=== PATIENT | female | born 2000 | race Caucasian/White ===

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

== ENCOUNTER → 2021-01-12 | Outpatient (REF) | payer OTHER | LOC: M PLALAB 14:18 | PROVIDERS: ATTEND Obstetrics & Gynecology | DX: Z3A.01 Less than 8 weeks gestation of pregnancy (principal) ==

== ENCOUNTER → 2021-02-09 | Outpatient (REF) | payer OTHER ==
[2021-02-09 14:21] LABS: HEMATOCRIT 39.6 % (36.0-47.0); MEAN CORPUSCULAR HEMOGLOBIN 31.4 pg (27.0-33.0); MEAN CORPUSCULAR HGB CONC 32.8 g/dl (32.0-36.5); MEAN CORPUSCULAR VOLUME 95.7 fl (80.0-96.0); PLATELET COUNT, AUTOMATED 245 10^3/uL (150-450); RED BLOOD COUNT 4.14 10^6/uL (4.00-5.40); WHITE BLOOD COUNT 9.9 10^3/uL (4.0-10.0)
[2021-02-09 15:42] LABS: HEPATITIS C VIRUS ABY INDEX < 0.0 INDEX (<0.8); HIV 1&2 SCREEN CENTAUR NEGATIVE (NEGATIVE)
== END ==
LOC: M PLALAB 11:44
PROVIDERS: ATTEND Obstetrics & Gynecology
DX: Z34.01 Encounter for supervision of normal first pregnancy, first trimester (principal)

== ENCOUNTER → 2021-03-09 | Outpatient (REF) | payer OTHER | LOC: M PLALAB 10:38 | PROVIDERS: ATTEND Obstetrics & Gynecology | DX: Z36.89 Encounter for other specified antenatal screening (principal); Z3A.15 15 weeks gestation of pregnancy ==

== ENCOUNTER → 2021-03-30 | Outpatient (CLI) | payer OTHER ==
--- NOTE | 2021-03-30 14:31 | REP ---
INDICATION: ANATOMY COMPARISON: 03/09/2021 TECHNIQUE: Transabdominal obstetrical ultrasound with color Doppler evaluation. FINDINGS: Examination demonstrates a single live intrauterine in cephalic presentation. motion is identified by technologist. Placenta is noted anterior and grade 1 without evidence for placenta previa or abruption. Amniotic fluid volume is normal. Cervix measures 5.3 cm in length and appears closed.. Gestational age by current measurements 19 weeks 5 days with LEVI 08/19/2021. FHR equals 149 beats per minute. Estimated weight 286 grams (22ndpercentile based on age by current measurements at 19 weeks 5 days). Anatomical assessment demonstrates normal structures including cranium, choroid plexus, cavum, cerebellum/posterior fossa, facial features, lungs, four-chamber heart/ventricular outflow tracts, diaphragm, stomach, cord insertion/three-vessel cord, kidneys/bladder, spine, and extremities. IMPRESSION: Single live intrauterine . Anatomical assessment is complete and normal. <Electronically signed by Tomas Buck > 03/30/21 [id number]
== END ==
LOC: M WHC 13:21
PROVIDERS: ATTEND Obstetrics & Gynecology
DX: Z36.89 Encounter for other specified antenatal screening (principal); Z3A.19 19 weeks gestation of pregnancy

== ENCOUNTER 2021-05-09 10:51 | Emergency (ER) | payer OTHER ==
[~2021-05-09] VITALS: Ht 165.1 cm; Wt 61.2 kg
[2021-05-09] MEDS ORDERED: NS 1,000 ML IV ONE (11:50)
[2021-05-09 12:24] LABS: BASO % 0.3 % (0.0-1.0); EOS # 0.1 10^3/uL (0.0-0.5); EOS % 0.6 % (0.0-3.0); HEMATOCRIT 35.1 % (36.0-47.0); HEMOGLOBIN 11.5 g/dl (12.0-15.5); LYMPH # 1.2 10^3/uL (1.5-5.0); LYMPH % 11.5 % (24.0-44.0); MEAN CORPUSCULAR HEMOGLOBIN 31.9 pg (27.0-33.0); MEAN CORPUSCULAR HGB CONC 32.8 g/dl (32.0-36.5); MEAN CORPUSCULAR VOLUME 97.5 fl (80.0-96.0); MONO # 0.7 10^3/uL (0.0-0.8); MONO % 6.3 % (2.0-8.0); NEUTROPHILS # 8.3 10^3/uL (1.5-8.5); NEUTROPHILS % 80.6 % (36.0-66.0); PLATELET COUNT, AUTOMATED 196 10^3/uL (150-450); WHITE BLOOD COUNT 10.3 10^3/uL (4.0-10.0)
[2021-05-09 13:22] LABS: CK-MB VALUE MASS 1.2 NG/ML (<3.6); CPK CREATINE PHOSPHOKINASE 11 U/L (26-192); HCG, SERUM QUANTITATIVE 22453 MIU/ML; MB/CK RELATIVE INDEX 10.91 (< OR =4); TROPONIN I < 0.02 NG/ML (< 0.10)
[2021-05-09 17:53] LABS: CK-MB VALUE MASS < 1.0 NG/ML (<3.6); CPK CREATINE PHOSPHOKINASE 10 U/L (26-192); TROPONIN I < 0.02 NG/ML (< 0.10)
[2021-05-09 18:16] VITALS: BP 118/69
[2021-08-22] MEDS ORDERED: BENA25CA4 PO (12:45)
[2021-08-22] MEDS ORDERED: ACET500P3 PO (12:45)
[2021-08-23] MEDS ORDERED: OXYC1TAB23 PO (09:07)
[2021-08-23] MEDS ORDERED: IBUP80TA PO (09:07)
== END 2021-05-09 19:10 | disposition home or self-care (01) ==
LOC: M ED 10:51
DX: O99.282 Endocrine, nutritional and metabolic diseases complicating pregnancy, second trimester (principal); O26.52 Maternal hypotension syndrome, second trimester

== ENCOUNTER → 2021-06-02 | Outpatient (CLI) | payer OTHER ==
[2021-06-02 14:05] LABS: HEMOGLOBIN 10.5 g/dl (12.0-15.5); MEAN CORPUSCULAR HEMOGLOBIN 31.9 pg (27.0-33.0); MEAN CORPUSCULAR HGB CONC 31.8 g/dl (32.0-36.5); MEAN CORPUSCULAR VOLUME 100.3 fl (80.0-96.0); PLATELET COUNT, AUTOMATED 195 10^3/uL (150-450); RED BLOOD COUNT 3.29 10^6/uL (4.00-5.40); WHITE BLOOD COUNT 9.1 10^3/uL (4.0-10.0)
== END ==
LOC: M PLALAB 08:35
PROVIDERS: ATTEND Advanced Practice Midwife
DX: Z34.02 Encounter for supervision of normal first pregnancy, second trimester (principal); Z3A.00 Weeks of gestation of pregnancy not specified

== ENCOUNTER → 2021-07-09 | Outpatient (CLI) | payer OTHER ==
[2021-07-09 15:29] LABS: HEMATOCRIT 33.2 % (36.0-47.0); HEMOGLOBIN 10.6 g/dl (12.0-15.5); MEAN CORPUSCULAR HEMOGLOBIN 30.3 pg (27.0-33.0); MEAN CORPUSCULAR HGB CONC 31.9 g/dl (32.0-36.5); MEAN CORPUSCULAR VOLUME 94.9 fl (80.0-96.0); PLATELET COUNT, AUTOMATED 186 10^3/uL (150-450); WHITE BLOOD COUNT 9.1 10^3/uL (4.0-10.0)
[2021-07-09 15:43] LABS: CREATININE,RANDOM URINE 85.5 MG/DL; TOTAL PROTEIN,RANDOM URINE 22.1 MG/DL (0.0-12.0)
[2021-07-09 16:01] LABS: ALT/SGPT 20 U/L (12-78); BILIRUBIN,TOTAL 0.6 MG/DL (0.2-1.0); LDH LACTATE DEHYDROGENASE 148 U/L (84-246); URIC ACID 3.6 MG/DL (2.6-6.0)
== END ==
LOC: M PLALAB 12:17
PROVIDERS: ATTEND Obstetrics & Gynecology
DX: O16.9 Unspecified maternal hypertension, unspecified trimester (principal)

== ENCOUNTER → 2021-08-12 | Outpatient (REF) | payer OTHER | LOC: M SFHCWAGY 16:56 | PROVIDERS: ATTEND Advanced Practice Midwife | DX: Z36.89 Encounter for other specified antenatal screening (principal); Z3A.37 37 weeks gestation of pregnancy ==

== ENCOUNTER → 2021-08-13 | Outpatient (CLI) | payer OTHER ==
--- NOTE | 2021-08-13 12:34 | REP ---
INDICATION: SIZE DATE DISCREPANCY. COMPARISON: Comparison study May 09, 2021. TECHNIQUE: Transabdominal obstetric sonography. FINDINGS: Scanning through the gravid uterus demonstrates a viable single intrauterine gestation in cephalic lie. motion is observed and heart rate is recorded at 149 beats per minute. A anterior placenta is seen, grade 2, without evidence of placenta previa. Closed cervical length is measured at 3.0 cm transabdominally. No extrauterine abnormality is observed. Amniotic fluid is subjectively polyhydramnios. FABBY is elevated at 25.1 cm (7.2-22.5 cm).. Biometry chart: BPD 9.5 cm, 38 weeks 5 days Head circumference 33.3 cm, 38 weeks 0 days Abdominal circumference 37.9 cm, 41 weeks 6 days Femur length 7.5 cm, 38 weeks 3 days Humeral length 6.6 cm, 38 weeks 3 days HC AC ratio normal 0.88 Cephalic index normal 0.82 Estimated weight 4046 g, 8 lb 14 oz, greater than 97th percentile for 39 weeks 1 day IMPRESSION: Viable single intrauterine gestation at 39 weeks 1 days by today's composite sonographic criteria. LEVI by today's sonography August 19, 2021. No complication identified. Expected gestational age estimate based on prior sonography 39 weeks 1 day, LEVI by prior sonography August 19, 2021. Appropriate interval growth. Polyhydramnios. <Electronically signed by Michelet Melendrez > 08/13/21 [id number]
== END ==
LOC: M WHC 11:51
PROVIDERS: ATTEND Advanced Practice Midwife
DX: O26.843 Uterine size-date discrepancy, third trimester (principal); Z3A.39 39 weeks gestation of pregnancy; O40.3XX0 Polyhydramnios, third trimester, not applicable or unspecified

== ENCOUNTER 2021-08-18 09:30 | Outpatient (CLI) | payer OTHER ==
[2021-08-18] VITALS (12 sets, daily range): BP systolic 115–143; BP diastolic 60–93
[~2021-08-18] VITALS: Ht 157.5 cm; Wt 70.3 kg
[2021-08-18] MEDS ORDERED: PRENTAB9 PO (10:39)
[2021-08-18] MEDS ORDERED: TUMS500C PO (10:39)
[2021-08-18] MEDS ORDERED: HOME MED LIST COMPLETE! XX SCH (10:40)
[2021-08-18 11:09] LABS: HEMATOCRIT 32.4 % (36.0-47.0); HEMOGLOBIN 10.3 g/dl (12.0-15.5); MEAN CORPUSCULAR HEMOGLOBIN 28.5 pg (27.0-33.0); MEAN CORPUSCULAR HGB CONC 31.8 g/dl (32.0-36.5); MEAN CORPUSCULAR VOLUME 89.8 fl (80.0-96.0); PLATELET COUNT, AUTOMATED 200 10^3/uL (150-450); RED BLOOD COUNT 3.61 10^6/uL (4.00-5.40); WHITE BLOOD COUNT 9.8 10^3/uL (4.0-10.0)
[2021-08-18 11:12] LABS: APPEARANCE, URINE HAZY (CLEAR); BACTERIA, URINE AUTO 2+ (NEGATIVE); BILIRUBIN, URINE AUTO NEGATIVE (NEGATIVE); BLOOD, URINE BLOOD NEGATIVE (NEGATIVE); COLOR, URINE YELLOW (YELLOW); GLUCOSE, URINE (UA) AUTO NEGATIVE (NEGATIVE); KETONE, URINE AUTO NEGATIVE (NEGATIVE); LEUKOCYTE ESTERASE, URINE AUTO NEGATIVE (NEGATIVE); NITRITE, URINE AUTO NEGATIVE (NEGATIVE); PROTEIN, URINE AUTO NEGATIVE (NEGATIVE); RBC, URINE AUTO 0 /HPF (0-3); SQUAMOUS EPITHELIAL CELL UR AU 4 /HPF (0-6); UROBILINOGEN, URINE AUTO 0.2 mg/dL (0.0-2.0); WBC, URINE AUTO 8 /HPF (0-3)
[2021-08-18] MEDS ORDERED: MORPHINE 2 MG/ML 1ML VIAL (J2270) IV PRN (11:35)
[2021-08-18 11:37] LABS: ALBUMIN 2.6 GM/DL (3.2-5.2); ALT/SGPT 17 U/L (12-78); BILIRUBIN,TOTAL 0.6 MG/DL (0.2-1.0); BLOOD UREA NITROGEN 9 MG/DL (7-18); CALCIUM LEVEL 8.2 MG/DL (8.5-10.1); CARBON DIOXIDE LEVEL 22 MEQ/L (21-32); CHLORIDE LEVEL 108 MEQ/L (98-107); CREATININE FOR GFR 0.52 MG/DL (0.55-1.30); GLUCOSE, FASTING 73 MG/DL (70-100); POTASSIUM SERUM 4.2 MEQ/L (3.5-5.1); SODIUM LEVEL 138 MEQ/L (136-145); TOTAL PROTEIN 5.8 GM/DL (6.4-8.2)
[2021-08-18] MEDS ORDERED: cefTRIAXone SOD 1 GM in D5W MINI-BAG PLUS 50 ML IV SCH (12:00)
[2021-08-18] MEDS ORDERED: NS 1,000 ML IV SCH (12:30)
--- NOTE | 2021-08-18 15:45 | REP ---
INDICATION: eval for kidney stones COMPARISON: None TECHNIQUE: Real time lemos scale ultrasound examination using curved array transducer. FINDINGS: Right kidney measures 12.7 x 4.3 x 6.6 cm and includes grade 4 hydroureteronephrosis without obvious nephrolithiasis, cystic or renal mass lesion. Left kidney measures 13.1 x 4.5 x 6.4 cm and demonstrates grade 4 hydroureteronephrosis without obvious nephrolithiasis, cystic or renal mass lesion. Bladder is collapsed. Advanced at 38 weeks (FHR: 144 bpm). IMPRESSION: Marked symmetric bilateral hydroureteronephrosis likely induced. No evidence for nephrolithiasis. <Electronically signed by Tomas Buck > 08/18/21 [id number]
[2021-08-18] MEDS ORDERED: TAMSULOSIN 0.4 MG CAP PO ONE (18:00)
[2021-08-18] MEDS ORDERED: ACETAMINOPHEN 500 MG TAB PO ONE (19:15)
[2021-08-18] MEDS ORDERED: FLOM0.4C39 PO (21:22)
[2021-08-18] MEDS ORDERED: CEPH25SS PO (21:23)
--- NOTE | 2021-08-18 21:39 | IPNPDOC ---
Text Note Date of Service The patient was seen on 08/18/21. NOTE S: Pt is a 21yo G 1 P 0 at 38w2 EGA who presents with severe, colicky back pain. Denies ctx, lof, vb. +FM. History of kidney stones and feels like this pain is similar. First episode of pain on Tuesday, sudden onset associated with vomiting. Self resolved. Denies fevers, chills. Denies dysuria/urgency/frequency. Continues to have left flank pain on and off since Tuesday. O: BP 131/83 HR 90 T 98.1 FHT 125 mod +accel no decel TOCO irregular SVE /-2 UA: neg blood, neg nit, +WBC and +bacteria Renal US: negative A/P: Pt is a 21yo at 38w2d EGA who presents with left flank pain concerning for kidney stones 1. Flank pain - Renal US shows no stone - dose of flomax given in hospital - morphine IV tried with some relief - tylenol 1000mg once with relief of pain - pt given one dose of ceftriaxone, rx sent for keflex Dispo: Pt feels better after tylenol and flomax. Would like to go home. Discussed straining urine and continue Abx for possible UTI. Encourage flomax daily until passing of stone. Labor precautions reviewed. Pt to return if fevers > 100.4 VS,Fishbone, I+O VS, Fishbone, I+O Laboratory Tests 08/18/21 10:53 Vital Signs Date Time Temp Pulse Resp B/P (MAP) Pulse Ox O2 Delivery O2 Flow Rate FiO2 08/18/21 19:05 91 124/72 (89) 08/18/21 17:53 98.3 20 97 Room Air ERICKA BERKOWITZ MD Aug 18, 2021 21:39
== END 2021-08-18 21:21 | disposition home or self-care (01) ==
LOC: M LDO 09:30
PROVIDERS: ATTEND Obstetrics & Gynecology
DX: O26.899 Other specified pregnancy related conditions, unspecified trimester (principal); M54.50 Low back pain, unspecified; Z87.442 Personal history of urinary calculi; Z79.899 Other long term (current) drug therapy
CPT/HCPCS: 76775; 80053; 81001; 85027; 87086; J0696; J2270

== ENCOUNTER → 2023-01-25 | Outpatient (REF) | payer OTHER ==
[~2023-01-25] MED LIST: ACET500P3 PO; BENA25CA4 PO; CEPH25SS PO; FLOM0.4C39 PO; IBUP80TA PO; OXYC1TAB23 PO; PRENTAB9 PO; TUMS500C PO
[2023-01-25 20:01] LABS: GC DNA AMPLIFICATION NEGATIVE (NEGATIVE)
== END ==
LOC: M LAB REF 17:16
PROVIDERS: ATTEND Registered Nurse
DX: M54.50 Low back pain, unspecified (principal); R25.2 Cramp and spasm; R30.0 Dysuria

== ENCOUNTER → 2023-08-16 | Outpatient (CLI) | payer OTHER | LOC: M WHC 10:27 | PROVIDERS: ATTEND Advanced Practice Midwife | DX: O34.211 Maternal care for low transverse scar from previous cesarean delivery (principal); Z3A.19 19 weeks gestation of pregnancy ==

== ENCOUNTER → 2023-09-06 | Outpatient (REF) | payer OTHER, MEDICAID ==
[2023-09-06 20:22] LABS: GC DNA AMPLIFICATION NEGATIVE (NEGATIVE)
== END ==
LOC: M PLALAB 14:45
PROVIDERS: ATTEND Advanced Practice Midwife
DX: Z34.92 Encounter for supervision of normal pregnancy, unspecified, second trimester (principal)

== ENCOUNTER → 2023-10-14 | Outpatient (CLI) | payer OTHER ==
[2023-10-14 15:14] LABS: HEMATOCRIT 35.7 % (36.0-47.0); HEMOGLOBIN 11.4 g/dl (12.0-15.5); MEAN CORPUSCULAR HGB CONC 31.9 g/dl (32.0-36.5); PLATELET COUNT, AUTOMATED 219 10^3/uL (150-450); RED BLOOD COUNT 3.68 10^6/uL (4.00-5.40); WHITE BLOOD COUNT 10.4 10^3/uL (4.0-10.0)
[2023-10-14 17:16] LABS: CHLAMYDIA DNA AMPLIFICATION NEGATIVE (NEGATIVE); GC DNA AMPLIFICATION NEGATIVE (NEGATIVE)
== END ==
LOC: M PLALAB 09:45
PROVIDERS: ATTEND Advanced Practice Midwife
DX: Z34.92 Encounter for supervision of normal pregnancy, unspecified, second trimester (principal)

== ENCOUNTER → 2023-11-11 | Outpatient (REF) | payer OTHER, MEDICAID | LOC: M PLALAB 08:40 | PROVIDERS: ATTEND Advanced Practice Midwife | DX: O34.211 Maternal care for low transverse scar from previous cesarean delivery (principal); Z3A.00 Weeks of gestation of pregnancy not specified ==

== ENCOUNTER → 2023-11-29 | Outpatient (REF) | payer OTHER, MEDICAID ==
[2023-11-29 14:29] LABS: TOTAL PROTEIN,RANDOM URINE 23.1 MG/DL (0.0-14.0)
[2023-11-29 14:35] LABS: CREATININE,RANDOM URINE 67.2 MG/DL
== END ==
LOC: M PLALAB 09:25
PROVIDERS: ATTEND Obstetrics & Gynecology
DX: O16.3 Unspecified maternal hypertension, third trimester (principal)

== ENCOUNTER → 2023-11-29 | Outpatient (CLI) | payer OTHER ==
[2023-11-29 10:31] LABS: HEMATOCRIT 34.1 % (36.0-47.0); HEMOGLOBIN 10.9 g/dl (12.0-15.5); MEAN CORPUSCULAR HEMOGLOBIN 30.1 pg (27.0-33.0); MEAN CORPUSCULAR VOLUME 94.2 fl (80.0-96.0); PLATELET COUNT, AUTOMATED 201 10^3/uL (150-450); RED BLOOD COUNT 3.62 10^6/uL (4.00-5.40); WHITE BLOOD COUNT 9.9 10^3/uL (4.0-10.0)
[2023-11-29 10:53] LABS: ALBUMIN 2.7 G/DL (3.2-5.2); ALKALINE PHOSPHATASE 84 U/L (46-116); ALT/SGPT 11 U/L (7.0-40); AST/SGOT 12 U/L (<34); BILIRUBIN,TOTAL 1.1 MG/DL (0.3-1.2); BLOOD UREA NITROGEN 7 MG/DL (9-23); CALCIUM LEVEL 8.3 MG/DL (8.5-10.1); CARBON DIOXIDE LEVEL 25 MMOL/L (20-31); CHLORIDE LEVEL 109 MMOL/L (98-107); CREATININE FOR GFR 0.45 MG/DL (0.55-1.30); GLOMERULAR FILTRATION RATE > 60.0 (>60); GLUCOSE, FASTING 74 MG/DL (60-100); POTASSIUM SERUM 4.3 MMOL/L (3.5-5.1); SODIUM LEVEL 139 MMOL/L (136-145); TOTAL PROTEIN 5.7 G/DL (5.7-8.2)
== END ==
LOC: M PLALAB 09:21
PROVIDERS: ATTEND Obstetrics & Gynecology
DX: O16.3 Unspecified maternal hypertension, third trimester (principal); Z3A.00 Weeks of gestation of pregnancy not specified

== ENCOUNTER → 2023-12-08 | Outpatient (CLI) | payer OTHER | LOC: M WHC 08:03 | PROVIDERS: ATTEND Obstetrics & Gynecology | DX: Z36.2 Encounter for other antenatal screening follow-up (principal); Z3A.35 35 weeks gestation of pregnancy ==

== ENCOUNTER → 2023-12-12 | Outpatient (REF) | payer OTHER, MEDICAID | LOC: M PLALAB 08:45 | PROVIDERS: ATTEND Advanced Practice Midwife | DX: Z34.93 Encounter for supervision of normal pregnancy, unspecified, third trimester (principal) ==

== ENCOUNTER → 2023-12-27 | Outpatient (CLI) | payer OTHER | LOC: M WHC 06:59 | PROVIDERS: ATTEND Advanced Practice Midwife | DX: O26.843 Uterine size-date discrepancy, third trimester (principal); Z3A.36 36 weeks gestation of pregnancy ==

== ENCOUNTER 2024-01-08 23:09 | Inpatient (IN) | payer OTHER, MEDICAID ==
[~2024-01-08] VITALS: Ht 157.5 cm; Wt 77.2 kg
[2024-01-08 23:29] VITALS: BP 128/76
[2024-01-08] MEDS: LACTATED RINGER'S 1000 ML IV STA (23:34)
[2024-01-08] MEDS ORDERED: METHYLERGONOVINE MALEATE 0.2MG/ML 1ML VIAL IM PRN (23:35)
[2024-01-08] MEDS ORDERED: TRANEXAMIC ACID INJection 1,000 MG in NS 100 ML IV PRN (23:35)
[2024-01-08] MEDS ORDERED: CARBOPROST TROMETHAMINE 250 MCG/ML AMP IM PRN (23:35)
[2024-01-08] MEDS ORDERED: OXYTOCIN DRIP 30 UNITS in IV 1 EA IV PRN (23:35)
[2024-01-09] VITALS (29 sets, daily range): BP systolic 88–162; BP diastolic 51–93; TEMP 98.6; O2SAT 96–100
[2024-01-09 00:27] LABS: HEMATOCRIT 32.4 % (36.0-47.0); HEMOGLOBIN 10.5 g/dl (12.0-15.5); MEAN CORPUSCULAR HEMOGLOBIN 28.2 pg (27.0-33.0); MEAN CORPUSCULAR HGB CONC 32.4 g/dl (32.0-36.5); MEAN CORPUSCULAR VOLUME 86.9 fl (80.0-96.0); PLATELET COUNT, AUTOMATED 210 10^3/uL (150-450); RED BLOOD COUNT 3.73 10^6/uL (4.00-5.40)
[2024-01-09] MEDS ORDERED: CEPH250T PO (00:30)
[2024-01-09] MEDS ORDERED: ONDANSETRON 4MG 2ML VIAL IV PRN (00:45)
[2024-01-09] MEDS ORDERED: NALOXONE INJ 0.4MG/1ML VIAL IV PRN (00:45)
[2024-01-09] MEDS ORDERED: diphenhydrAMINE 50MG/ML VIAL IV PRN (00:45)
[2024-01-09] MEDS ORDERED: EPIDURAL/PCA KEYS XX PRN (00:45)
[2024-01-09] MEDS ORDERED: LR 500 ML IV PRN (00:45)
[2024-01-09] MEDS ORDERED: ePHEDrine SULFATE 25 MG/5 ML(5MG/ML) SYRINGE IVP PRN (00:45)
[2024-01-09] MEDS: FENTANYL/ROPIVACAINE/NACL BAG 100 ML EPIDURAL SCH (02:04)
[2024-01-09] MEDS ORDERED: LIDOCAINE 2% W/EPINEPHRINE 20ML VIAL **PRES FREE As Ordered ONE (04:03)
[2024-01-09] MEDS ORDERED: MIDAZOLAM INJ 2MG/2ML VIAL As Ordered ONE (04:04)
[2024-01-09] MEDS ORDERED: ceFAZolin 2 GM/D5W 50 ML IV BAG As Ordered ONE (04:17)
[2024-01-09] MEDS: ceFAZolin SOD 2 GM in IV 1 EA IV ONE (04:31)
[2024-01-09] MEDS ORDERED: NORCO, ANEXSIA 5/325MG TABLET (HYDROcodone/ACETAMINOPHEN) PO PRN (05:15)
[2024-01-09] MEDS ORDERED: fentaNYL 100 MCG/2 ML INJECTION IV PRN (05:15)
[2024-01-09] MEDS ORDERED: RHOGAM 300MCG (1500IU) INJ IM SCH (05:20)
[2024-01-09] MEDS ORDERED: METHYLERGONOVINE MALEATE 0.2 MG TAB PO PRN (05:20)
[2024-01-09] MEDS: LR 1,000 ML IV SCH (05:32)
[2024-01-09] MEDS: ONDANSETRON 4MG 2ML VIAL IV PRN ×2 (05:32→11:07)
[2024-01-09] MEDS: IBUPROFEN 600MG TAB PO PRN (08:05)
[2024-01-09] MEDS: PRENATAL VITAMINS CHEWABLE TABLET PO SCH (08:05)
[2024-01-09] MEDS: DOCUSATE SODIUM 100MG CAPSULE PO PRN (08:05)
[2024-01-09] MEDS: ACETAMINOPHEN 500 MG TAB PO PRN (09:07)
[2024-01-09] MEDS: oxyCODONE 5MG TAB PO PRN (10:51)
[2024-01-09] MEDS: DIBUCAINE 1% OINTMENT 30GM TOP PRN (11:59)
[2024-01-10 02:00] VITALS: BP 114/61; O2SAT 96
[2024-01-10 06:00] VITALS: BP 127/70; O2SAT 100
[2024-01-10 07:23] LABS: HEMATOCRIT 25.4 % (36.0-47.0); MEAN CORPUSCULAR HEMOGLOBIN 27.7 pg (27.0-33.0); MEAN CORPUSCULAR HGB CONC 31.1 g/dl (32.0-36.5); MEAN CORPUSCULAR VOLUME 89.1 fl (80.0-96.0); PLATELET COUNT, AUTOMATED 171 10^3/uL (150-450); RED BLOOD COUNT 2.85 10^6/uL (4.00-5.40); WHITE BLOOD COUNT 10.9 10^3/uL (4.0-10.0)
[2024-01-10 07:27] LABS: HEMOGLOBIN 7.9 g/dl (12.0-15.5)
[2024-01-10 10:00] VITALS: BP 116/64; O2SAT 100
[2024-01-11] MEDS ORDERED: MEASLES,MUMPS,RUBELLA VACCINE INJ (MMR-II) SC.IMMUN ONE (09:00)
== END 2024-01-10 13:57 | disposition home or self-care (01) | DRG 540 ==
LOC: M LDO 23:09 → M LDI 23:32 → M OBS 01-09 05:40
PROVIDERS: ADMIT Obstetrics & Gynecology; ATTEND Obstetrics & Gynecology
PROC: 0DQR0ZZ Repair Anal Sphincter, Open Approach (ICD-10-PCS; 2024-01-09)
PROC: 10D00Z1 Extraction of Products of Conception, Low, Open Approach (ICD-10-PCS; principal; 2024-01-09 03:51)
DX: O34.211 Maternal care for low transverse scar from previous cesarean delivery (principal); O70.20 Third degree perineal laceration during delivery, unspecified; Z37.0 Single live birth; Z3A.39 39 weeks gestation of pregnancy

== ENCOUNTER → 2024-02-01 | Outpatient (REF) | payer OTHER, MEDICAID ==
[~2024-02-01] MED LIST changes: +CEPH250T PO
== END ==
LOC: M PLALAB 16:10
PROVIDERS: ATTEND Obstetrics & Gynecology
DX: N76.0 Acute vaginitis (principal)

== ENCOUNTER 2024-04-05 07:41 | Outpatient (RCR) | payer OTHER | END 2024-04-06 | LOC: M PT 07:41 | PROVIDERS: ATTEND Obstetrics & Gynecology | DX: Z39.2 Encounter for routine postpartum follow-up (principal); O71.89 Other specified obstetric trauma; O94 Sequelae of complication of pregnancy, childbirth, and the puerperium ==

== ENCOUNTER 2024-05-01 07:37 | Outpatient (RCR) | payer OTHER | END 2024-05-06 | LOC: M PT 07:37 | PROVIDERS: ATTEND Obstetrics & Gynecology | DX: M62.08 Separation of muscle (nontraumatic), other site (principal); R10.2 Pelvic and perineal pain ==

== ENCOUNTER → 2024-05-09 | Outpatient (CLI) | payer OTHER | LOC: M WHC 06:53 | PROVIDERS: ATTEND Physician Assistant | DX: N63.31 Unspecified lump in axillary tail of the right breast (principal) ==

== ENCOUNTER → 2025-08-08 | Outpatient (CLI) | payer OTHER ==
[~2025-08-08] MED LIST changes: -FLOM0.4C39 PO; +TAMS-18 PO
[2025-08-08 15:13] LABS: PLATELET COUNT, AUTOMATED 232 10^3/uL (150-450)
[2025-08-08 15:51] LABS: HIV 1&2 SCREEN NEGATIVE (NEGATIVE)
[2025-08-08 15:58] LABS: HEPATITIS C VIRUS ABY INDEX 0.02 INDEX (<0.8)
[2025-08-08 16:13] LABS: Trichomonas vaginalis (AMP) NOT DETECTED (NEGATIVE)
[2025-08-08 16:36] LABS: GC DNA AMPLIFICATION NEGATIVE (NEGATIVE)
== END ==
LOC: M PLALAB 12:45
PROVIDERS: ATTEND Nurse Practitioner Family
DX: Z34.81 Encounter for supervision of other normal pregnancy, first trimester (principal)

== ENCOUNTER → 2025-09-17 | Outpatient (CLI) | payer OTHER | LOC: M WHC 13:33 | PROVIDERS: ATTEND Nurse Practitioner Family | DX: Z34.80 Encounter for supervision of other normal pregnancy, unspecified trimester (principal) ==

== ENCOUNTER → 2025-10-09 | Outpatient (CLI) | payer OTHER | LOC: M WHC 12:30 | PROVIDERS: ATTEND Nurse Practitioner Family | DX: O26.892 Other specified pregnancy related conditions, second trimester (principal); R22.33 Localized swelling, mass and lump, upper limb, bilateral; Z3A.22 22 weeks gestation of pregnancy ==